=== PATIENT | female | born 1960 | race Caucasian/White ===

== ENCOUNTER → 2017-11-10 | Outpatient (CLI) | payer BC, OTHER ==
[~2017-11-10] MED LIST: AZOR 10 MG-40 M1 TAB PO; CARDI-OMEGA1000 MG PO; CLARITIN 1010 MG/TAB PO; CLARITIN LIQUI-10 MG PO; CRESTOR 10MG10 MG PO; FLAGYL500 MG PO; FLEXERIL 1010 MG/TAB PO; FLEXERIL10 MG PO; FLONASE NASAL S16 GM NS; FOLIC ACID800 MCG PO; FORTAMET1000 MG PO; GLUCOPHAGE500 MG/TAB PO; GLUCOSAMINE & C1 CA1 PO; HYDRODIURIL50 MG PO; IMITREX100 MG PO; LANTUS SOLOS100 U/ML SC; LANTUS100 U/ML SC; LASIX 40MG TABL40 MG PO; LEVAQUIN 750MG750 M1 PO; LOPID 600M600 MG/TAB PO; LORATADINE10 MG PO; LORTAB 10/500 51 TAB PO; LORTAB 7.5/5001 TAB; NEW CHOLESTEROL MED; NITROQUICK0.3 MG SL; NOVOLOG 100U100 U/M1 SC; PERCOCET 325 MG1 TA2 PO; PERCOCET 5/321 UDTAB PO; PHENERGAN 25 TA25 MG PO; PHENERGAN25 MG RC; PRILOSEC 20MG20 MG PO; PROAIR HFA0.09 MG/AC IH; SIMVASTATIN10 MG PO; SINGULAIR 110 MG/TAB PO; SINGULAIR10 MG PO; SYNTHROID 0.0.025 MG PO; ULTRAM 50MG TAB50 MG PO; VALIUM 10MG10 MG/TAB PO; VALIUM 5MG T5 MG/TAB PO; VITAMIN E 400 U4001 PO
== END ==
LOC: COL.RAD 09:54
DX: M25.551 Pain in right hip (principal)
CPT/HCPCS: J3301; Q9967

== ENCOUNTER 2018-03-31 09:24 | Day surgery (SDC) | payer BC, OTHER ==
[~2018-03-31] VITALS: Ht 157.5 cm; Wt 99.4 kg
[2018-03-31] VITALS (199 sets, daily range): BP systolic 115–158; BP diastolic 58–90; PULSE 50–63; TEMP 97.8–98.2; O2SAT 93–100
[~2018-03-31 09:24] MED LIST changes: +BASAGLAR K100 UNIT/1 SQ; -CLARITIN LIQUI-10 MG PO; +IMITREX 25MG TA25 MG PO; -IMITREX100 MG PO; -LANTUS SOLOS100 U/ML SC; -NITROQUICK0.3 MG SL; +NITROSTAT0.4 MG/TAB SL; +PRIL40 PO; -PRILOSEC 20MG20 MG PO; -SYNTHROID 0.0.025 MG PO; +SYNTHROID0.075 MG/T PO
[2018-03-31 09:59] LABS: HEMATOCRIT 39.9 % (37.0-47.0); HEMOGLOBIN 13.7 g/dl (12.5-16.0); MEAN CELL VOLUME 89 fl (80.0-100.0); MEAN CORPUSCULAR HEMOGLOBIN 30 pg (27.0-31.0); MEAN CORPUSCULAR HGB CONC 34 g/dl (33.0-37.0); MEAN PLATELET VOLUME 9.4 fl (7.4-10.4); PLATELET COUNT 302 K/mm3 (130-400)
[2018-03-31 10:07] LABS: INR 1.1 (0.8-3.0); PROTHROMBIN TIME 12.1 SECONDS (9.7-12.8)
[2018-03-31 10:09] LABS: CALCIUM 9.4 mg/dL (8.4-10.2); CREATININE, serum 0.85 mg/dL (0.52-1.25); POTASSIUM 4.4 mmol/L (3.4-5.0)
[2018-03-31] MEDS ORDERED: ASPIRIN 81M81 MG/TA2 PO (10:55)
[2018-03-31] MEDS ORDERED: ALBUTEROL0.83 MG/ML IH (11:01)
[2018-03-31] MEDS ORDERED: LASIX 40MG TABL40 MG PO (11:05)
[2018-03-31] MEDS ORDERED: PERCOCET 325 MG1 TA2 PO (11:12)
[2018-03-31] MEDS ORDERED: PHENERGAN 25 TA25 MG PO (11:13)
[2018-03-31] MEDS ORDERED: CRESTOR5 MG PO (11:14)
[2018-03-31] MEDS ORDERED: TOPAMAX50 MG PO (11:16)
[2018-03-31] MEDS ORDERED: ULTRAM 50MG TAB50 MG PO (11:17)
[2018-03-31] MEDS ORDERED: AMITIZA 8MCG8 MCG PO (11:18)
[2018-03-31] MEDS ORDERED: ATROVENT NASAL15 ML NS (11:19)
--- NOTE | 2018-03-31 11:49 | NUR ---
Pt to procedure
--- NOTE | 2018-03-31 13:14 | NUR ---
Pt arrived with slab conditioner supervisor nurse,reports pain in right shoulder rated at a 5 on 0-10 scale.Per Hope,dental laboratory manager nurse she will request pain medication.Will continue to monitor.
--- NOTE | 2018-03-31 13:14 | NUR ---
Pt arrived to room 16.Report from Bonifacio Mason.
--- NOTE | 2018-03-31 13:40 | NUR ---
PER PT REPORT MORHINE "MAKES ME NAUSEATED."
--- NOTE | 2018-03-31 13:40 | NUR ---
Nitro drip started by Alessia,ICU securities supervisor at this time.Pt on telemetry.Will continue to monitor.
--- NOTE | 2018-03-31 13:50 | NUR ---
Dilaudid 1 mg IV slowly for c/o pain rated at a 5 on 0-10 scale.
--- NOTE | 2018-03-31 14:49 | NUR ---
Report to Bonifacio Frausto.pt to ICU # 5.
--- NOTE | 2018-03-31 14:50 | NUR ---
Report recieved from [facility] in express unit. Patient's right groin site checked and verified with RN, CDI.
--- NOTE | 2018-03-31 15:00 | NUR ---
Transfered to ICU room 5 via bed, transfered to ICU bed with RN assist x2. Tolerated fair. Continues to complain of Right shoulder pain, denies jaw or chest pain. NTG continues at 10mgc/min per orders.
--- NOTE | 2018-03-31 16:41 | NUR ---
Crying in bed, complains of back pain. Percocet and Flexeril given. Repositioned in bed without difficulty. Call light at side. will monitor
--- NOTE | 2018-03-31 18:09 | NUR ---
Report given to Camille Pineda RN
--- NOTE | 2018-03-31 19:17 | NUR ---
REPORT GIVEN TO KEATON JOHNSON.
--- NOTE | 2018-03-31 19:20 | NUR ---
Bedside report received from KEATON Obrien.
--- NOTE | 2018-03-31 20:00 | NUR ---
Shift assessment complete at this time. Patient is up in the chair snacking. Patient's dressing has a small amount of drainage on it, but no hematoma present. Complaints of some mild pain rated 3/10 at the site. Offered tylenol, but denies want at this time. Assisted patient back to bed. Positioned for comfort. No other needs at this time. Will continue to monitor.
[2018-04-01] VITALS (304 sets, daily range): BP systolic 105–188; BP diastolic 46–61; PULSE 56–62; TEMP 97.6–98; O2SAT 91–100
--- NOTE | 2018-04-01 | NUR ---
Patient sleeping in bed at this time with CPAP on. Easily arousable. Complaints of mild pain at the insertion site, right femoral. Dressing continues to have a small amount of bloody drainage, no hematoma present. Patient has no further needs at this time. Will continue to monitor. Call light within reach.
--- NOTE | 2018-04-01 04:00 | NUR ---
Patient sleeping comfortably at this time. She has taken off her CPAP mask. VSS. Patient continues to have mild pain at cath site, but does not want medications. No further needs at this time. Will continue to monitor.
[2018-04-01 05:29] LABS: BASO % 0.3 % (0.0-2.0); EOS # 0.2 (0.0-0.7); EOS % 2.2 % (0-4.0); GRAN # 5.4 (1.4-6.5); HEMOGLOBIN 12.2 g/dl (12.5-16.0); LYMPH # 1.6 (1.2-3.4); LYMPH % 20.4 % (20.0-51.0); MEAN CELL VOLUME 89 fl (80.0-100.0); MEAN CORPUSCULAR HEMOGLOBIN 30 pg (27.0-31.0); MEAN CORPUSCULAR HGB CONC 34 g/dl (33.0-37.0); MEAN PLATELET VOLUME 9.7 fl (7.4-10.4); MONO # 0.6 (0.1-0.6); MONO % 7.7 % (1.7-9.3); PLATELET COUNT 277 K/mm3 (130-400); RED BLOOD COUNT 4.03 M/mm3 (4.10-5.30); REDCELL DISTRIBUTION WIDTH-CV 12.1 % (11.5-14.5)
[2018-04-01 05:30] LABS: HEMATOCRIT 35.9 % (37.0-47.0)
[2018-04-01 05:40] LABS: ANION GAP 6 mmol/L (7-16); BLOOD UREA NITROGEN 16 mg/dL (7-17); CALCIUM 8.9 mg/dL (8.4-10.2); CARBON DIOXIDE 27 mmol/L (22-30); CHLORIDE 104 mmol/L (98-107); CREATININE, serum 0.76 mg/dL (0.52-1.25); GLUCOSE 160 mg/dL (74-106); POTASSIUM 3.6 mmol/L (3.4-5.0); SODIUM 137 mmol/L (137-145)
[2018-04-01 05:48] LABS: CREATINE KINASE < 20 U/L (30-135)
--- NOTE | 2018-04-01 07:23 | NUR ---
Bedside report given to KAETON Bowie. Cath site inspected. Transfer of care at this time.
--- NOTE | 2018-04-01 08:30 | NUR ---
DRESSING TO RIGHT GROIN CHANGED. PT HAD OLD BLOODY DRAINAGE NOTED TO DRESSING. DRESSING CHANGED TO ENSURE PT WAS NOT OOZING. PT HAS 2 PUNCTURE SITES NOTED TO RIGHT GROIN. AREA REMAINS FREE OF DRAINAGE. NO REDNESS NOTED. SLIGHT AMT OF BRUISING. NO HEMATOMA NOTED. 2X2 FOLDED AND PLACED OVER SITES AND SECURED WITH TEGADERM. PT TOLERATED WELL.
[2018-04-01] MEDS ORDERED: BRILINTA90 MG PO (09:54)
[2018-04-01] MEDS ORDERED: IMDUR 30MG30 MG/TAB PO (09:58)
--- NOTE | 2018-04-01 10:04 | NUR ---
SW met with patient about discharge plans. Patient live independently at home with her . Her PCP is Dr dumont and she obtains prescriptions from [facility] in [place]. Patient does not use any home health services and she uses CPAP at night but no other DME is reported. Patient does have a DPOA and those forms are in her chart. Patient is planning to discharge today and DANNIELLE does not anticipate any discharge needs.
--- NOTE | 2018-04-01 11:45 | NUR ---
DISCHARGE INSTRUCTIONS REVIEWED WITH PATIENT. PT VERALIZED UNDERSTANDING. IV DISCONTINUED. PT TRANSPORTED TO ED ENTRANCE FOR DISCHARGE WHERE AWAITED WITH VEHICLE. PT'S BELONGINGS TRANSFERRED WITH PATIENT.
== END 2018-04-01 11:45 | disposition home or self-care (01) ==
LOC: COL.CAR 09:24 → ICU 16:48 → COL.CAR 04-01 11:45
PROVIDERS: Internal Medicine Cardiovascular Disease
DX: I25.10 Atherosclerotic heart disease of native coronary artery without angina pectoris (principal); Z88.8 Allergy status to other drugs, medicaments and biological substances; Z88.5 Allergy status to narcotic agent; Z91.040 Latex allergy status
CPT/HCPCS: OP; C1760; C1769; C1874; C1887; C1894; C9600; J0153; J0583; J1170; J1644; J1815; J2250; J3010; Q9967

== ENCOUNTER 2018-06-09 18:16 | Inpatient (IN) | payer BC, OTHER ==
[2018-06-09] VITALS (94 sets, daily range): BP systolic 111–122; BP diastolic 60–68; PULSE 57–69; TEMP 97.7; O2SAT 92–100
[~2018-06-09] VITALS: Ht 167.6 cm; Wt 100.4 kg
[~2018-06-09 18:16] MED LIST changes: +ALBUTEROL0.83 MG/ML IH; +AMITIZA 8MCG8 MCG PO; +ASPIRIN 81M81 MG/TA2 PO; +ATROVENT NASAL15 ML NS; +BRILINTA90 MG PO; +CRESTOR5 MG PO; +IMDUR 30MG30 MG/TAB PO; +TOPAMAX50 MG PO
[2018-06-09 18:56] LABS: BASO % 0.4 % (0.0-2.0); EOS # 0.3 (0.0-0.7); EOS % 3.2 % (0-4.0); GRAN # 6.2 (1.4-6.5); GRAN % 68.3 % (42.2-75.2); HEMOGLOBIN 12.4 g/dl (12.5-16.0); LYMPH # 1.9 (1.2-3.4); LYMPH % 20.3 % (20.0-51.0); MEAN CELL VOLUME 91 fl (80.0-100.0); MEAN CORPUSCULAR HEMOGLOBIN 31 pg (27.0-31.0); MEAN CORPUSCULAR HGB CONC 34 g/dl (33.0-37.0); MEAN PLATELET VOLUME 9.4 fl (7.4-10.4); MONO # 0.7 (0.1-0.6); MONO % 7.4 % (1.7-9.3); PLATELET COUNT 333 K/mm3 (130-400); PROTHROMBIN TIME 11.7 SECONDS (9.7-12.8); RED BLOOD COUNT 4.03 M/mm3 (4.10-5.30); REDCELL DISTRIBUTION WIDTH-CV 12.3 % (11.5-14.5)
[2018-06-09 18:58] LABS: HEMATOCRIT 36.7 % (37.0-47.0)
[2018-06-09 18:59] LABS: PARTIAL THROMBOPLASTIN TIME 36.2 SECONDS (26.0-37.0)
[2018-06-09] MEDS ORDERED: DICLOZOR1 EACH TOP (18:59)
[2018-06-09 19:06] LABS: ALANINE AMINOTRANSFERASE 19 U/L (9-52); ALBUMIN 4.1 gm/dL (3.5-5.0); ALKALINE PHOSPHATASE 76 U/L (50-136); ANION GAP 9 mmol/L (7-16); AST,SGOT 26 U/L (15-37); BILIRUBIN,TOTAL 0.6 mg/dL (0.0-1.0); BLOOD UREA NITROGEN 12 mg/dL (7-17); CALCIUM 9.1 mg/dL (8.4-10.2); CARBON DIOXIDE 28 mmol/L (22-30); CHLORIDE 104 mmol/L (98-107); CREATININE, serum 0.76 (0.52-1.25); GLUCOSE 226 mg/dL (74-106); POTASSIUM 3.9 mmol/L (3.4-5.0); SODIUM 141 mmol/L (137-145); TOTAL PROTEIN 7.5 gm/dL (6.4-8.2)
[2018-06-09 19:19] LABS: TROPONIN-I < 0.012 ng/mL (0.000-0.035)
[2018-06-09] MEDS ORDERED: MYCOLOG CREAM 115 GM (22:48)
[2018-06-09] MEDS ORDERED: XIFAXAN550 MG PO (22:50)
--- NOTE | 2018-06-09 23:15 | NUR ---
PT C/O CP, NITRO GTT INCREASED BY 5MCG/MIN
[2018-06-10] VITALS (569 sets, daily range): BP systolic 86–151; BP diastolic 41–78; PULSE 49–74; TEMP 97.5–97.8; O2SAT 58–100
--- NOTE | 2018-06-10 01:00 | NUR ---
PT C/O HEADACHE. PT NO LONGER EXPERIENCING CP. NITRO GTT DECREASED.
[2018-06-10 06:08] LABS: BASO % 0.5 % (0.0-2.0); EOS # 0.3 (0.0-0.7); EOS % 3.4 % (0-4.0); GRAN # 4.8 (1.4-6.5); GRAN % 65.2 % (42.2-75.2); HEMOGLOBIN 11.4 g/dl (12.5-16.0); LYMPH # 1.7 (1.2-3.4); LYMPH % 22.2 % (20.0-51.0); MEAN CELL VOLUME 92 fl (80.0-100.0); MEAN CORPUSCULAR HEMOGLOBIN 31 pg (27.0-31.0); MEAN CORPUSCULAR HGB CONC 33 g/dl (33.0-37.0); MEAN PLATELET VOLUME 9.7 fl (7.4-10.4); MONO # 0.6 (0.1-0.6); MONO % 8.3 % (1.7-9.3); PLATELET COUNT 263 K/mm3 (130-400); RED BLOOD COUNT 3.72 M/mm3 (4.10-5.30); REDCELL DISTRIBUTION WIDTH-CV 12.3 % (11.5-14.5)
[2018-06-10 06:11] LABS: HEMATOCRIT 34.2 % (37.0-47.0)
[2018-06-10 06:16] LABS: CALCIUM 8.9 mg/dL (8.4-10.2); CHOLESTEROL RISK RATIO 3.9; CREATININE, serum 0.78 (0.52-1.25)
--- NOTE | 2018-06-10 07:30 | NUR ---
Bedside report received from KEATON Young.
--- NOTE | 2018-06-10 08:00 | NUR ---
Assessment completed. Pt resting in bed, easily arousable. Oriented x4. Pt now off cpap and placed on 2L/NC. Pt c/o CP, pressure, not radiating, 03/05. Remains on nitroglycerin gtt. VSS. Updated on plan of care r/t npo status for possible heart catherization today. Pt verbalized understanding. Call light in reach.
--- NOTE | 2018-06-10 09:45 | NUR ---
Nitroglycerin gtt dc'd per Dr Medina's verbal orders.
--- NOTE | 2018-06-10 10:05 | NUR ---
Regino, factory laborer RN here to take pt to computer laboratory technician procedure. Signed consent in chart. Pt taken to computer laboratory technician via bed.
--- NOTE | 2018-06-10 10:34 | NUR ---
ALL MEDICATIONS GIVEN VORB WITH MD. SEE MERGE FOR ALL MEDICATION ADMIN TIMES. SEE MERGE FOR ALL RASS ASSESSMENTS DURING AND POST PROCEDURE. POSITIVE BARBEAU'S TEST IN THE RIGHT WRIST. +2 PALPABLE RADIAL PULSE.
--- NOTE | 2018-06-10 11:20 | NUR ---
Report received from [facility], engineer geophysical laboratory RN at 1105. Pt arrived to ICU bed 5 via bed at 1120. Pt resting, easily arousable. Oriented x3. Right wrist with TR band, inflated with 11 cc of air. Pt denies any pain at this time. Discussed plan of care r/t TR band and post heart cath checks. Pt verbalized understanding. Call light in reach. Pt's at bedside.
--- NOTE | 2018-06-10 13:30 | NUR ---
2 cc of air taken out of right wrist TR band. No bleeding noted from incision site.
[2018-06-10] MEDS ORDERED: EFFIENT10 MG PO (13:58)
[2018-06-10] MEDS ORDERED: BASAGLAR K100 UNIT/1 SQ (14:00)
--- NOTE | 2018-06-10 14:04 | NUR ---
2 cc of air taken out of right wrist TR band. No bleeding noted from incision site. area soft.
--- NOTE | 2018-06-10 14:05 | NUR ---
DANNIELLE met with patient and about discharge plan. Patient is planning to discharge home today. Patient lives independently at home with her . Patients' PCP is Dr Mueller and she obtain prescriptions from the [facility] in [place]. Patient reports she uses a CPAP at home but no other DME is used and she does not use any home health services. Patient does have a DPOA and her reports there should be a copy in the chart. SW does not anticipate any discharge needs.
--- NOTE | 2018-06-10 14:20 | NUR ---
2 cc of air taken out of right wrist TR band. no bleeding noted from incision site.
--- NOTE | 2018-06-10 14:55 | NUR ---
3 cc of air taken out of right wrist TR band. No bleeding noted from incision site.
--- NOTE | 2018-06-10 15:05 | NUR ---
2 cc of air taken out of right wrist TR band. No bleeding noted from incision site.
--- NOTE | 2018-06-10 15:29 | NUR ---
KARI Rojas with Dr Medina, notified pt will be discharged today. Will add cardiology follow up appointment to discharge instructions.
--- NOTE | 2018-06-10 15:30 | NUR ---
right wrist TR band off. bandaid placed over incision site. area soft. VSS. will monitor.
--- NOTE | 2018-06-10 16:17 | NUR ---
Pt given discharge instructions, med list and discharge education paperwork. Discussed discharge information with pt and pt's at bedside. All questions answered to pt's satisfaction. Pt signed discharge papers. left AC PIV discontinued. Catheter intact. Pt discharged from ICU and left unit via wheelchair to private vehicle driven by .
== END 2018-06-10 16:20 | disposition home or self-care (01) | DRG 287 ==
LOC: COL.ER 18:16 → ICU 19:49
PROVIDERS: Family Medicine; Nurse Practitioner; ADMIT Hospitalist
PROC: B2111ZZ Fluoroscopy of Multiple Coronary Arteries using Low Osmolar Contrast (ICD-10-PCS; principal; 2018-06-10)
DX: R07.89 Other chest pain (principal); I25.10 Atherosclerotic heart disease of native coronary artery without angina pectoris; I10 Essential (primary) hypertension; E11.9 Type 2 diabetes mellitus without complications; E78.5 Hyperlipidemia, unspecified; Z95.5 Presence of coronary angioplasty implant and graft; E03.9 Hypothyroidism, unspecified; K21.9 Gastro-esophageal reflux disease without esophagitis; Z79.4 Long term (current) use of insulin; Z87.891 Personal history of nicotine dependence; R60.0 Localized edema
CPT/HCPCS: J1644; J1815; J2250; J3010; J7030; Q9967

== ENCOUNTER 2018-08-29 18:26 | Emergency (ER) | payer BC, OTHER ==
[~2018-08-29] VITALS: Ht 165.1 cm; Wt 100.0 kg
[~2018-08-29 18:26] MED LIST changes: +DICLOZOR1 EACH TOP; +EFFIENT10 MG PO; +MYCOLOG CREAM 115 GM; +XIFAXAN550 MG PO
[2018-08-29 18:30] VITALS: TEMP 98.4
[2018-08-29 20:07] VITALS: BP 127/65; PULSE 70
== END 2018-08-29 20:12 | disposition home or self-care (01) ==
LOC: COL.ER 18:26
DX: S09.90XA Unspecified injury of head, initial encounter (principal); S83.91XA Sprain of unspecified site of right knee, initial encounter; S63.501A Unspecified sprain of right wrist, initial encounter; S53.401A Unspecified sprain of right elbow, initial encounter; I25.10 Atherosclerotic heart disease of native coronary artery without angina pectoris; Z98.890 Other specified postprocedural states; Z79.4 Long term (current) use of insulin; Z79.51 Long term (current) use of inhaled steroids; Z79.82 Long term (current) use of aspirin; W01.0XXA Fall on same level from slipping, tripping and stumbling without subsequent striking against object, initial encounter; Y92.009 Unspecified place in unspecified non-institutional (private) residence as the place of occurrence of the external cause
CPT/HCPCS: L1846

== ENCOUNTER → 2018-12-07 | Outpatient (CLI) | payer BC, OTHER | LOC: COL.RAD 10:16 | DX: S63.591A Other specified sprain of right wrist, initial encounter (principal) | CPT/HCPCS: A9585; Q9967 ==

== ENCOUNTER → 2020-09-11 | Outpatient (CLI) | payer BC, OTHER ==
[~2020-09-11] MED LIST changes: +IMDUR 60MG60 MG/TAB PO; +NEURONTIN100 MG/CAP PO; +TRIAMCINOLONE A15 G3 TP; +TRULICITY0.75 MG/0. SQ
== END ==
LOC: MC.RAD 10:45
DX: Z12.31 Encounter for screening mammogram for malignant neoplasm of breast (principal)

== ENCOUNTER 2020-10-31 08:20 | Day surgery (SDC) | payer BC, OTHER ==
[~2020-10-31] VITALS: Ht 165.1 cm; Wt 100.2 kg
[~2020-10-31 08:20] MED LIST changes: -IMDUR 60MG60 MG/TAB PO; -NEURONTIN100 MG/CAP PO; -TRIAMCINOLONE A15 G3 TP; -TRULICITY0.75 MG/0. SQ
[2020-10-31 10:24] VITALS: BP 128/75; PULSE 66; TEMP 97.9
[2020-10-31] MEDS ORDERED: IMDUR 60MG60 MG/TAB PO (10:42)
[2020-10-31] MEDS ORDERED: TRULICITY0.75 MG/0. SQ (10:51)
[2020-10-31] MEDS ORDERED: TRIAMCINOLONE A15 G3 TP (10:51)
[2020-10-31] MEDS ORDERED: NEURONTIN100 MG/CAP PO (10:52)
[2020-10-31 11:35] VITALS: BP 108/66; PULSE 64; TEMP 97.8
[2020-10-31 11:45] VITALS: BP 103/65; PULSE 65
[2020-10-31 12:00] VITALS: BP 110/62; PULSE 57
[2020-10-31 12:15] VITALS: BP 116/59; PULSE 59
--- NOTE | 2020-10-31 12:37 | NUR ---
1135 Pt returns from endo procedure via cart and RN assist to GI [place] 5. Pt ambulates from cart to recliner with RN assist. Monitors on and alarms set. Call light within reach. Report received from KEATON Shelley. Pt drowsy but answering all questions appropritely. Pt requests juice and muffin. Pt denies any pain or nausea. 1150 Pt taking food and drink well. No complications noted. 1230 Discharge instructions given to pt and . All questions answered to their satisfaction. Handed to pt are a thank you card and discharge information. 1237 Pt transferred out of the hospital via wheelchair and this RN assist, to private vehicle driven by pt's .
== END 2020-10-31 12:37 | disposition home or self-care (01) ==
LOC: SDCO 08:20
DX: K31.7 Polyp of stomach and duodenum (principal); K55.20 Angiodysplasia of colon without hemorrhage; K64.0 First degree hemorrhoids; D50.9 Iron deficiency anemia, unspecified; I10 Essential (primary) hypertension; J45.909 Unspecified asthma, uncomplicated; E11.9 Type 2 diabetes mellitus without complications; E03.9 Hypothyroidism, unspecified; Z20.822 Contact with and (suspected) exposure to COVID-19; G47.33 Obstructive sleep apnea (adult) (pediatric); E78.2 Mixed hyperlipidemia; I25.10 Atherosclerotic heart disease of native coronary artery without angina pectoris; E66.9 Obesity, unspecified; G89.29 Other chronic pain; K21.9 Gastro-esophageal reflux disease without esophagitis; Z79.4 Long term (current) use of insulin; Z79.899 Other long term (current) drug therapy; Z79.82 Long term (current) use of aspirin; Z79.890 Hormone replacement therapy; Z79.891 Long term (current) use of opiate analgesic; Z85.828 Personal history of other malignant neoplasm of skin; Z85.820 Personal history of malignant melanoma of skin; Z79.02 Long term (current) use of antithrombotics/antiplatelets
CPT/HCPCS: J2704; J7030

== ENCOUNTER 2021-02-20 13:17 | Emergency (ER) | payer BC, OTHER ==
[~2021-02-20] VITALS: Ht 165.1 cm; Wt 94.1 kg
[~2021-02-20 13:17] MED LIST changes: +IMDUR 60MG60 MG/TAB PO; +NEURONTIN100 MG/CAP PO; +TRIAMCINOLONE A15 G3 TP; +TRULICITY0.75 MG/0. SQ
[2021-02-20 15:29] LABS: ALBUMIN 3.6 gm/dL (3.4-4.8); BILIRUBIN,TOTAL 0.6 mg/dL (0.2-1.2); C-REACTIVE PROTEIN 0.23 mg/dL (0.00-0.50); CALCIUM 8.9 mg/dL (8.4-10.2); CREATININE, serum 0.82 mg/dL (0.57-1.11); POTASSIUM 4.3 mmol/L (3.5-4.5); TOTAL PROTEIN 6.8 gm/dL (6.2-8.1)
[2021-02-20 15:41] LABS: COLLECTION METHOD CLEAN CATCH
[2021-02-20 15:47] LABS: MUCOUS Present (NOT PRESENT); PH 7 (5-8); SQUAMOUS EPITHELIAL 0-2 /hpf (0-10); URINE APPEARANCE Clear (CLEAR/HAZY); URINE BACTERIA Rare /hpf (NONE SEEN); URINE BILIRUBIN Negative (NEGATIVE); URINE BLOOD Negative (NEGATIVE); URINE COLOR Yellow (YELLOW); URINE GLUCOSE Negative (NEGATIVE); URINE KETONE Negative (NEGATIVE); URINE LEUKOCYTE ESTERASE Negative (NEGATIVE); URINE NITRATE Negative (NEGATIVE); URINE PROTEIN(semi-quant) Negative (NEGATIVE); URINE RBC None Seen /hpf (0-2); URINE UROBILINOGEN Negative (NEGATIVE)
[2021-02-20 16:12] LABS: BASO % 0.3 % (0.0-2.0); EOS # 0.1 K/mm3 (0.0-0.7); GRAN # 4.4 K/mm3 (1.4-6.5); GRAN % 63.9 % (42.2-75.2); HEMATOCRIT 37.5 % (37.0-47.0); HEMOGLOBIN 12.3 g/dl (12.5-16.0); LYMPH # 1.8 K/mm3 (1.2-3.4); LYMPH % 25.8 % (20.0-51.0); MEAN CELL VOLUME 90 fl (80.0-100.0); MEAN CORPUSCULAR HEMOGLOBIN 30 pg (27-31); MEAN CORPUSCULAR HGB CONC 33 g/dl (33.0-37.0); MEAN PLATELET VOLUME 9.4 fl (7.4-10.4); MONO # 0.5 K/mm3 (0.1-0.6); MONO % 7.7 % (1.7-9.3); PLATELET COUNT 293 K/mm3 (130-400); RED BLOOD COUNT 4.17 M/mm3 (4.10-5.30); REDCELL DISTRIBUTION WIDTH-CV 12.9 % (11.5-14.5)
[2021-02-20 18:10] VITALS: BP 155/73; PULSE 56; TEMP 97.9
== END 2021-02-20 18:13 | disposition home or self-care (01) ==
LOC: COL.ER 13:17
PROVIDERS: Emergency Medicine; Nurse Practitioner
DX: K21.9 Gastro-esophageal reflux disease without esophagitis (principal); E11.9 Type 2 diabetes mellitus without complications; I10 Essential (primary) hypertension; I25.10 Atherosclerotic heart disease of native coronary artery without angina pectoris; Z90.710 Acquired absence of both cervix and uterus; Z79.4 Long term (current) use of insulin; Z79.84 Long term (current) use of oral hypoglycemic drugs; Z79.82 Long term (current) use of aspirin
CPT/HCPCS: J2405; J7030; Q9967

== ENCOUNTER → 2021-09-11 | Outpatient (CLI) | payer BC, OTHER | LOC: MC.RAD 10:59 | DX: Z12.31 Encounter for screening mammogram for malignant neoplasm of breast (principal) ==

== ENCOUNTER 2023-03-31 09:11 | Day surgery (SDC) | payer BC, OTHER ==
[~2023-03-31] VITALS: Ht 165.1 cm; Wt 108.0 kg
[~2023-03-31 09:11] MED LIST changes: +LR 1,000 ML IV SCH; +Ondansetron 4 MG/2 ML VIAL IV PRN
[2023-03-31] MEDS ORDERED: Lidocaine PF 2% (20 MG/ML) 5 ML VIAL ONE (10:24)
[2023-03-31] MEDS ORDERED: BASAGLAR K100 UNIT/1 SQ (10:28)
[2023-03-31 10:49] VITALS: BP 137/72; PULSE 61; TEMP 97
[2023-03-31 11:05] VITALS: BP 138/72; PULSE 58; TEMP 96.3
[2023-03-31 11:15] VITALS: BP 142/67; PULSE 57
--- NOTE | 2023-03-31 11:33 | NUR ---
1105- PATIENT RETUR[place] [facility] [place]. PT AWAKE AND ALERT. RESPIRATIONS UNLABORED. AMBULATED TO RECLINER CHAIR WITH 2:1 SBA. PT DENIES NAUSEA OR ABDOMINAL PAIN. HOOKED UP TO MONITOR AND VS OBTAINED. CALL LIGHT AT SIDE AND PRESENT. 1112- PATIENT TOLERATING COFFE & WATER AND A WARM MUFFIN WITHOUT NAUSEA OR DIFFICULTY SWALLOWING. 1120- D/C INSTRUCTIONS REVIEWED WITH PATIENT. PT VERBALIZED UNDERSTANDING AND A COPY OF INSTRUCTIONS PROVIDED IN D/C FOLDER. 1122- DR. LEWIS IN ROOM SPEAKING WITH PATIENT. 1130- PATIENT DRESSES SELF. 1133- PATIENT DISCHARGED FROM UNIT VIA W/C TO A PERSONAL VEHICLE. PT LEFT HOSPITAL IN STABLE CONDITION.
== END 2023-03-31 11:33 | disposition home or self-care (01) ==
LOC: SDCO 09:11
DX: K21.9 Gastro-esophageal reflux disease without esophagitis (principal); K31.7 Polyp of stomach and duodenum; K29.80 Duodenitis without bleeding; K63.89 Other specified diseases of intestine; E11.9 Type 2 diabetes mellitus without complications; G47.33 Obstructive sleep apnea (adult) (pediatric); Z79.84 Long term (current) use of oral hypoglycemic drugs; Z79.4 Long term (current) use of insulin; Z79.899 Other long term (current) drug therapy; Z85.820 Personal history of malignant melanoma of skin; Z95.5 Presence of coronary angioplasty implant and graft
CPT/HCPCS: J2704; J7120

== ENCOUNTER → 2023-10-06 | Outpatient (CLI) | payer MEDICARE, BC, OTHER ==
[~2023-10-06] MED LIST changes: -LR 1,000 ML IV SCH; -Ondansetron 4 MG/2 ML VIAL IV PRN
== END ==
LOC: MC.RAD 11:10
DX: Z12.31 Encounter for screening mammogram for malignant neoplasm of breast (principal)